=== PATIENT | female | born 1995 | race Caucasian/White ===

== ENCOUNTER → 2016-02-23 | Outpatient (CLI) | payer BC ==
[~2016-02-23] MED LIST: AZIT250T5 PO; AZIT250T81 PO; DICY20TA33 PO; METH4TAB27 PO; NFMET1000 PO; ONDAN4ODT PO
== END ==
LOC: LAB 15:31
PROVIDERS: ATTEND Obstetrics & Gynecology Obstetrics
DX: N91.3 Primary oligomenorrhea (principal)
CPT/HCPCS: 36415; 84144

== ENCOUNTER → 2016-03-01 | Outpatient (CLI) | payer BC | LOC: LAB 15:08 | PROVIDERS: ATTEND Obstetrics & Gynecology Obstetrics | DX: N91.0 Primary amenorrhea (principal) | CPT/HCPCS: 36415; 84144; 84702 ==

== ENCOUNTER → 2016-03-03 | Outpatient (CLI) | payer BC | LOC: LAB 07:57 | PROVIDERS: ATTEND Obstetrics & Gynecology Obstetrics | DX: O09.891 Supervision of other high risk pregnancies, first trimester (principal) | CPT/HCPCS: 36415; 84144; 84702 ==